=== PATIENT | male | born 1940 | race Caucasian/White ===

== ENCOUNTER 2017-09-29 15:49 | Emergency (ER) | payer MEDICARE, MEDICAID ==
[~2017-09-29] VITALS: Ht 170.2 cm; Wt 64.5 kg
[2017-09-29] MEDS ORDERED: HYDR-4061 PO (15:52)
[2017-09-29 16:22] LABS: BASOPHILS % (AUTO) 1.2 % (0.0-2.0); EOSINOPHILS % (AUTO) 1.2 % (1.0-6.0); HEMATOCRIT 39.7 % (41-53); HEMOGLOBIN 13.7 g/dL (13.5-17.5); LYMPHOCYTES # (AUTO) 2.9 K/uL (1.0-4.8); LYMPHOCYTES % (AUTO) 32.6 % (22.0-44.0); MEAN CORPUSCULAR HEMOGLOBIN 31.5 pg (26.0-34.0); MEAN CORPUSCULAR HGB CONC 34.5 G/dL (31.0-37.0); MEAN CORPUSCULAR VOLUME 91 fL (80-100); MONOCYTES # (AUTO) 0.8 K/uL (0.1-1.0); PLATELET COUNT (AUTO) 187 K/uL (150-450); RED BLOOD CELL COUNT(AUTO) 4.35 MIL/uL (4.50-5.90); RED CELL DISTRIBUTION WIDTH 14.3 % (11.5-14.5)
[2017-09-29 16:33] LABS: CALCIUM, TOTAL 8.6 mg/dL (8.8-10.5); CREATININE 1.55 mg/dL (0.60-1.30); POTASSIUM 3.8 mmol/L (3.5-5.1)
[2017-09-29 16:41] LABS: ALBUMIN 2.3 g/dL (3.4-5.0); BILIRUBIN,TOTAL 0.6 mg/dL (0.1-1.0)
[2017-09-29] MEDS ORDERED: OxyCODONE HCL/ACETAMINOPHEN 5-325 MG TABLET PO ONE (16:45)
[2017-09-29 22:00] LABS: APPEARANCE,URINE CLOUDY (CLEAR); BILIRUBIN,URINE NEGATIVE (NEGATIVE); GLUCOSE, URINE (UA) 250 mg/dL (NEGATIVE); KETONES,URINE TRACE mg/dL (NEGATIVE); LEUKOCYTE ESTERASE ,URINE MODERATE (NEGATIVE); NITRATE,URINE NEGATIVE (NEGATIVE); OCCULT BLOOD,URINE TRACE (NEGATIVE); PH,URINE 6.5 (5.0-8.0); PROTEIN,URINE SEE CONFIRM (NEGATIVE); UROBILINOGEN,URINE 0.2 mg/dL (<=1.0)
[2017-09-29 22:37] LABS: BACTERIA,URINE Many /HPF (None Seen); SULFOSALICYLIC ACID,URINE 4+ (Negative); WBC,URINE 26-50 /HPF (0-5)
[2017-09-29 22:38] LABS: HYALINE CASTS, URINE 0-2 /LPF (None Seen); SQUAMOUS EPITHELIAL CELL,UR None Seen /LPF (None Seen)
[2017-09-29] MEDS ORDERED: LEVOFLOXACIN 500 MG TABLET PO ONE (22:45)
[2017-09-29 22:47] VITALS: BP 174/83
== END 2017-09-29 22:48 | disposition home or self-care (01) ==
LOC: EMS 15:51
DX: N39.0 Urinary tract infection, site not specified (principal); K59.00 Constipation, unspecified; N40.0 Benign prostatic hyperplasia without lower urinary tract symptoms; K52.9 Noninfective gastroenteritis and colitis, unspecified; E11.9 Type 2 diabetes mellitus without complications; E78.00 Pure hypercholesterolemia, unspecified; I10 Essential (primary) hypertension; G89.29 Other chronic pain; M54.9 Dorsalgia, unspecified; F17.210 Nicotine dependence, cigarettes, uncomplicated; Z90.49 Acquired absence of other specified parts of digestive tract; Z98.890 Other specified postprocedural states; Z79.899 Other long term (current) drug therapy
CPT/HCPCS: 74176; 87086; 93005; 99285

== ENCOUNTER 2017-11-30 19:41 | Inpatient (IN) | payer MEDICARE, MEDICAID ==
[~2017-11-30] VITALS: Ht 165.1 cm; Wt 67.6 kg
[2017-11-30] MEDS ORDERED: AMLO-512 GT (19:53)
[2017-11-30] MEDS ORDERED: OXYC13.5 GT (19:53)
[2017-11-30] MEDS ORDERED: LACT1CAP62 GT (19:53)
[2017-11-30] MEDS ORDERED: CARV6 GT (19:53)
[2017-11-30] MEDS ORDERED: OXYC10 GT (19:53)
[2017-11-30] MEDS ORDERED: GABA-529 GT (19:53)
[2017-11-30] MEDS ORDERED: PANT40TA25 PO (19:53)
[2017-11-30] MEDS ORDERED: OXYC-530 GT (19:55)
[2017-11-30] MEDS ORDERED: DULA1.5P SQ (19:55)
[2017-11-30] MEDS ORDERED: 0.9% SODIUM CHLORIDE 10 ML SYRINGE IVP PRN (20:00)
[2017-11-30] MEDS ORDERED: SODIUM CHLORIDE 0.9% 1,000 ML IV ONE (20:00)
[2017-11-30 20:04] LABS: GLUCOSE,POINT OF CARE 131 MG/DL (70-110)
[2017-11-30 20:14] LABS: BASOPHILS % (AUTO) 0.5 % (0.0-2.0); EOSINOPHILS % (AUTO) 0.2 % (1.0-6.0); HEMOGLOBIN 9.8 g/dL (13.5-17.5); LYMPHOCYTES % (AUTO) 14.3 % (22.0-44.0); MEAN CORPUSCULAR HEMOGLOBIN 33.2 pg (26.0-34.0); MEAN CORPUSCULAR HGB CONC 34.9 G/dL (31.0-37.0); MEAN CORPUSCULAR VOLUME 95 fL (80-100); MONOCYTES % (AUTO) 14.6 % (2.0-9.0); NEUTROPHILS # (AUTO) 4.8 K/uL (1.8-7.7); NEUTROPHILS % (AUTO) 70.4 % (40.0-70.0); PLATELET COUNT (AUTO) 297 K/uL (150-450); RED BLOOD CELL COUNT(AUTO) 2.94 MIL/uL (4.50-5.90)
[2017-11-30 20:25] LABS: CALCIUM, TOTAL 7.7 mg/dL (8.8-10.5); CREATININE 1.78 mg/dL (0.60-1.30); POTASSIUM 3.7 mmol/L (3.5-5.1)
[2017-11-30 20:26] LABS: PROTHROMBIN TIME 10.6 SEC (9.4-11.6)
[2017-11-30] MEDS ORDERED: KETOROLAC TROMETHAMINE 30 MG/ML VIAL IVP ONE (20:30)
[2017-11-30 20:31] LABS: ALBUMIN 1.6 g/dL (3.4-5.0); BILIRUBIN,TOTAL 0.5 mg/dL (0.1-1.0); TOTAL PROTEIN, SERUM 5.1 g/dL (6.4-8.2)
[2017-11-30 20:33] LABS: LACTIC ACID 0.9 mmol/L (0.4-2.0)
[2017-11-30 21:03] LABS: INFLUENZA TYPE A NEGATIVE FOR TYPE A (NEGATIVE); INFLUENZA TYPE B NEGATIVE FOR TYPE B (NEGATIVE)
[2017-11-30] MEDS ORDERED: IOVERSOL 320 MG/ML 100 ML VIAL ONE (21:05)
[2017-11-30] MEDS ORDERED: SODIUM CHLORIDE 0.9% 0 ML ONE (21:05)
[2017-11-30] MEDS ORDERED: IPRATROPIUM BROMIDE 0.5 MG/2.5 ML NEB SOLUTION NEB PRN (22:15)
[2017-11-30] MEDS ORDERED: ALBUTEROL SULFATE 2.5 MG/0.5 ML NEB SOLUTION NEB PRN (22:15)
[2017-11-30] MEDS ORDERED: BISACODYL 10 MG RECTAL RECTAL SUPPOSITORY PR PRN (22:15)
[2017-11-30] MEDS ORDERED: ZOLPIDEM TARTRATE 5 MG TABLET PO PRN (22:15)
[2017-11-30] MEDS ORDERED: MAGNESIUM HYDROXIDE SUSPENSION 30 ML UDCUP PO PRN (22:15)
[2017-11-30] MEDS ORDERED: DEXTROSE 50%-WATER 25 GM/50 ML SYRINGE IVP PRN (22:45)
[2017-11-30 23:40] VITALS: BP 137/63
[2017-12-01 05:00] VITALS: BP 125/59
[2017-12-01 06:16] LABS: HEMATOCRIT 29.7 % (41-53); HEMOGLOBIN 10.4 g/dL (13.5-17.5); MEAN CORPUSCULAR HEMOGLOBIN 33.6 pg (26.0-34.0); MEAN CORPUSCULAR VOLUME 96 fL (80-100); PLATELET COUNT (AUTO) 312 K/uL (150-450); RED BLOOD CELL COUNT(AUTO) 3.09 MIL/uL (4.50-5.90); RED CELL DISTRIBUTION WIDTH 16.2 % (11.5-14.5)
[2017-12-01 06:23] LABS: HEMOGLOBIN A1C 7.2 % (4.5-6.2)
[2017-12-01 06:39] LABS: GLUCOMETER DEV NAME(LOC) 6N 2D; GLUCOSE,POINT OF CARE 89 MG/DL (70-110)
[2017-12-01 06:39] LABS: PROSTATE SPECIFIC ANTIGEN 2.94 ng/mL (0.00-4.00)
[2017-12-01 06:42] LABS: ALBUMIN 1.5 g/dL (3.4-5.0); BILIRUBIN,TOTAL 0.4 mg/dL (0.1-1.0); CALCIUM, TOTAL 7.6 mg/dL (8.8-10.5); CREATININE 1.86 mg/dL (0.60-1.30); POTASSIUM 3.2 mmol/L (3.5-5.1); TOTAL PROTEIN, SERUM 4.9 g/dL (6.4-8.2)
[2017-12-01 06:54] LABS: C-REACTIVE PROTEIN QUANT 6.05 mg/dL (0.00-0.30); CHOL/HDL RATIO 2.2 (4.2-7.3); FREE T4 (FREE THYROXINE) 1.22 ng/dL (0.76-1.46); MAGNESIUM 1.5 mg/dL (1.80-2.40); THYROID STIMULATING HORMONE 1.06 uIU/mL (0.36-3.74)
[2017-12-01 07:10] VITALS: BP 126/60
[2017-12-01 07:29] LABS: BAND NEUTROPHILS % (MANUAL) 19 % (0-5); BASOPHILS % (MANUAL) 1 % (0-2); EOSINOPHILS % (MANUAL) 2 % (1-6); LYMPHOCYTES % (MANUAL) 20 % (22-44); MONOCYTES % (MANUAL) 13 % (2-9); SEGMENTED NEUTROPHILS % 45 % (40-70)
[2017-12-01 07:31] LABS: PLATELET MORPHOLOGY COMMENT LARGE PLTS PRESENT
[2017-12-01 09:02] LABS: ERYTHROCYTE SEDIMENTATION RATE 20 MM/HR (0-15)
[2017-12-01] MEDS: PANTOPRAZOLE SODIUM 40 MG/VIAL IVP SCH (09:11)
[2017-12-01] MEDS: HEPARIN SODIUM,PORCINE 5,000 UNITS/ML VIAL SQ SCH ×2 (09:11→20:25)
[2017-12-01] MEDS ORDERED: POTASSIUM CHLORIDE 20 MEQ ER TABLET PO ONE (10:45)
[2017-12-01] MEDS ORDERED: MAGNESIUM SULFATE 4 GM/WATER 100 ML IV ONE (10:45)
[2017-12-01 11:18] VITALS: BP 124/64
[2017-12-01 15:25] VITALS: BP 124/64
[2017-12-01 17:54] LABS: GLUCOMETER DEV NAME(LOC) 6N 1E; GLUCOSE,POINT OF CARE 125 MG/DL (70-110)
[2017-12-01 20:14] VITALS: BP 132/86
[2017-12-01] MEDS: INSULIN LISPRO 100 UNITS/ML SQ PRN (20:27)
[2017-12-01 23:42] VITALS: BP 122/78
[2017-12-02 04:24] LABS: GLUCOMETER DEV NAME(LOC) 6N 1E; GLUCOSE,POINT OF CARE 176 MG/DL (70-110)
[2017-12-02 05:24] VITALS: BP 118/82
[2017-12-02 05:39] LABS: GLUCOMETER DEV NAME(LOC) 6N 1E; GLUCOSE,POINT OF CARE 91 MG/DL (70-110)
[2017-12-02 06:07] LABS: BASOPHILS % (AUTO) 0.4 % (0.0-2.0); EOSINOPHILS % (AUTO) 2.5 % (1.0-6.0); HEMATOCRIT 30.1 % (41-53); HEMOGLOBIN 10.5 g/dL (13.5-17.5); LYMPHOCYTES # (AUTO) 1.7 K/uL (1.0-4.8); LYMPHOCYTES % (AUTO) 22.1 % (22.0-44.0); MEAN CORPUSCULAR HEMOGLOBIN 33.2 pg (26.0-34.0); MEAN CORPUSCULAR VOLUME 95 fL (80-100); MONOCYTES # (AUTO) 1.2 K/uL (0.1-1.0); MONOCYTES % (AUTO) 15.7 % (2.0-9.0); NEUTROPHILS # (AUTO) 4.5 K/uL (1.8-7.7); NEUTROPHILS % (AUTO) 59.3 % (40.0-70.0); PLATELET COUNT (AUTO) 400 K/uL (150-450); RED BLOOD CELL COUNT(AUTO) 3.17 MIL/uL (4.50-5.90); RED CELL DISTRIBUTION WIDTH 15.7 % (11.5-14.5)
[2017-12-02 06:25] LABS: CALCIUM, TOTAL 7.7 mg/dL (8.8-10.5); CREATININE 1.62 mg/dL (0.60-1.30); MAGNESIUM 2.3 mg/dL (1.80-2.40); POTASSIUM 3.5 mmol/L (3.5-5.1)
[2017-12-02 06:45] LABS: C.DIFF GDH ANTIGEN, Stool Positive (Negative); C.DIFF TOXINS A&B, Stool Negative (Negative)
[2017-12-02 07:20] VITALS: BP 124/76
[2017-12-02 07:36] LABS: HIV 1-2 SCREEN 4TH GEN W/RFLX Non Reactive (Non Reactive)
[2017-12-02 07:36] LABS: CREATININE,URINE RANDOM 189.9 mg/dL (30.0-125.0); PROTEIN,URINE RANDOM 505 mg/dL (0-11.9)
[2017-12-02 07:49] LABS: APPEARANCE,URINE CLOUDY (CLEAR); BILIRUBIN,URINE NEGATIVE (NEGATIVE); GLUCOSE, URINE (UA) 100 mg/dL (NEGATIVE); KETONES,URINE NEGATIVE (NEGATIVE); LEUKOCYTE ESTERASE ,URINE NEGATIVE (NEGATIVE); NITRATE,URINE NEGATIVE (NEGATIVE); OCCULT BLOOD,URINE NEGATIVE (NEGATIVE); PROTEIN,URINE SEE CONFIRM (NEGATIVE); UROBILINOGEN,URINE 0.2 mg/dL (<=1.0)
[2017-12-02 07:57] LABS: SULFOSALICYLIC ACID,URINE 3+ (Negative)
[2017-12-02 08:00] LABS: RBC,URINE None Seen /HPF (0-2)
[2017-12-02 08:01] LABS: BACTERIA,URINE None Seen /HPF (None Seen); SQUAMOUS EPITHELIAL CELL,UR Few /LPF (None Seen); WBC,URINE 0-2 /HPF (0-5)
[2017-12-02] MEDS ORDERED: OxyCODONE HCL/ACETAMINOPHEN 10-325 MG TABLET PO PRN (08:45)
[2017-12-02] MEDS: PANTOPRAZOLE SODIUM 40 MG/VIAL IVP SCH (09:26)
[2017-12-02] MEDS: HEPARIN SODIUM,PORCINE 5,000 UNITS/ML VIAL SQ SCH ×2 (09:26→20:01)
[2017-12-02] MEDS: OxyCODONE HCL/ACETAMINOPHEN 10-325 MG TABLET PO PRN ×3 (09:26→23:21)
[2017-12-02 11:56] VITALS: BP 150/77
[2017-12-02] MEDS: SODIUM CHLORIDE 0.9% 1,000 ML IV SCH (12:02)
[2017-12-02] MEDS: VANCOMYCIN HCL 125 MG/2.5 ML SOLUTION ORAL.SYG PO SCH ×3 (12:03→23:21)
[2017-12-02] MEDS: INSULIN LISPRO 100 UNITS/ML SQ PRN ×2 (12:05→20:26)
[2017-12-02 12:59] LABS: GLUCOMETER DEV NAME(LOC) 6N 1E; GLUCOSE,POINT OF CARE 153 MG/DL (70-110)
[2017-12-02 16:03] VITALS: BP 122/78
[2017-12-02 20:00] VITALS: BP 143/83
[2017-12-02 20:49] LABS: GLUCOMETER DEV NAME(LOC) 6N 1E; GLUCOSE,POINT OF CARE 141 MG/DL (70-110)
[2017-12-03] VITALS: BP 137/80
[2017-12-03] MEDS: SODIUM CHLORIDE 0.9% 1,000 ML IV SCH (02:31)
[2017-12-03 04:00] VITALS: BP 131/74
[2017-12-03 06:13] LABS: BASOPHILS % (AUTO) 0.6 % (0.0-2.0); EOSINOPHILS % (AUTO) 2.8 % (1.0-6.0); HEMATOCRIT 26.7 % (41-53); HEMOGLOBIN 9.4 g/dL (13.5-17.5); LYMPHOCYTES # (AUTO) 2.1 K/uL (1.0-4.8); LYMPHOCYTES % (AUTO) 25.5 % (22.0-44.0); MEAN CORPUSCULAR HEMOGLOBIN 32.9 pg (26.0-34.0); MEAN CORPUSCULAR HGB CONC 35.4 G/dL (31.0-37.0); MEAN CORPUSCULAR VOLUME 93 fL (80-100); MONOCYTES % (AUTO) 12.6 % (2.0-9.0); NEUTROPHILS # (AUTO) 4.9 K/uL (1.8-7.7); NEUTROPHILS % (AUTO) 58.5 % (40.0-70.0); PLATELET COUNT (AUTO) 394 K/uL (150-450); RED BLOOD CELL COUNT(AUTO) 2.87 MIL/uL (4.50-5.90); RED CELL DISTRIBUTION WIDTH 15.7 % (11.5-14.5)
[2017-12-03] MEDS: VANCOMYCIN HCL 125 MG/2.5 ML SOLUTION ORAL.SYG PO SCH ×2 (06:33→12:16)
[2017-12-03 06:49] LABS: GLUCOMETER DEV NAME(LOC) 6N 1E; GLUCOSE,POINT OF CARE 108 MG/DL (70-110)
[2017-12-03 07:09] LABS: GLUCOMETER DEV NAME(LOC) 6N 2D; GLUCOSE,POINT OF CARE 108 MG/DL (70-110)
[2017-12-03 07:10] LABS: GLUCOMETER DEV NAME(LOC) 6N 2D; GLUCOSE,POINT OF CARE 140 MG/DL (70-110)
[2017-12-03 08:00] VITALS: BP 152/70
[2017-12-03] MEDS: PANTOPRAZOLE SODIUM 40 MG/VIAL IVP SCH (08:16)
[2017-12-03] MEDS: HEPARIN SODIUM,PORCINE 5,000 UNITS/ML VIAL SQ SCH (08:16)
[2017-12-03] MEDS: OxyCODONE HCL/ACETAMINOPHEN 10-325 MG TABLET PO PRN (08:47)
[2017-12-03 11:14] LABS: GLUCOMETER DEV NAME(LOC) 6N 1E; GLUCOSE,POINT OF CARE 133 MG/DL (70-110)
[2017-12-03 11:17] VITALS: BP 153/79
[2017-12-04] MEDS ORDERED: AmLODIPine BESYLATE 5 MG TABLET PO SCH (09:00)
[2017-12-16] MEDS ORDERED: VANCOMYCIN HCL 125 MG/2.5 ML SOLUTION ORAL.SYG PO SCH (21:00)
[2017-12-24] MEDS ORDERED: VANCOMYCIN HCL 125 MG/2.5 ML SOLUTION ORAL.SYG PO SCH (09:00)
[2018-01-01] MEDS ORDERED: VANCOMYCIN HCL 125 MG/2.5 ML SOLUTION ORAL.SYG PO SCH (09:00)
== END 2017-12-03 15:21 | DRG 682 ==
LOC: EMS 19:42 → 6N 22:30
PROVIDERS: ADMIT Internal Medicine Geriatric Medicine; ATTEND Internal Medicine Geriatric Medicine
DX: N17.9 Acute kidney failure, unspecified (principal); E43 Unspecified severe protein-calorie malnutrition; A04.72 Enterocolitis due to Clostridium difficile, not specified as recurrent; G93.40 Encephalopathy, unspecified; T40.605A Adverse effect of unspecified narcotics, initial encounter; M06.9 Rheumatoid arthritis, unspecified; N18.9 Chronic kidney disease, unspecified; D64.9 Anemia, unspecified; E11.65 Type 2 diabetes mellitus with hyperglycemia; B19.20 Unspecified viral hepatitis C without hepatic coma; E11.21 Type 2 diabetes mellitus with diabetic nephropathy; E11.22 Type 2 diabetes mellitus with diabetic chronic kidney disease; E11.319 Type 2 diabetes mellitus with unspecified diabetic retinopathy without macular edema; E78.00 Pure hypercholesterolemia, unspecified; E83.42 Hypomagnesemia; E86.0 Dehydration; E87.6 Hypokalemia; I12.9 Hypertensive chronic kidney disease with stage 1 through stage 4 chronic kidney disease, or unspecified chronic kidney disease; K21.9 Gastro-esophageal reflux disease without esophagitis; K62.1 Rectal polyp; N40.0 Benign prostatic hyperplasia without lower urinary tract symptoms; R62.7 Adult failure to thrive; Z79.1 Long term (current) use of non-steroidal anti-inflammatories (NSAID); Z79.891 Long term (current) use of opiate analgesic; Z79.4 Long term (current) use of insulin; Z80.8 Family history of malignant neoplasm of other organs or systems; Z82.49 Family history of ischemic heart disease and other diseases of the circulatory system; Z86.010 Personal history of colon polyps; Z86.19 Personal history of other infectious and parasitic diseases; Z87.19 Personal history of other diseases of the digestive system; Z91.19 Patient's noncompliance with other medical treatment and regimen; Z87.441 Personal history of nephrotic syndrome; Z68.24 Body mass index [BMI] 24.0-24.9, adult
CPT/HCPCS: 70450; 74176; 82105; 82570; 83036; 83605; 83735; 84153; 84156; 84439; 84443; 85651; 86140; 86592; 87040; 87081; 87177; 87324; 87389; 87449; 87804; 89055; 93005; 96361; 96374; C9113; G0378; J1644; J1885; J3475; J7030; J7050

== ENCOUNTER 2018-01-12 20:21 | Emergency (ER) | payer MEDICARE, MEDICAID ==
[~2018-01-12] VITALS: Ht 170.2 cm; Wt 77.3 kg
[~2018-01-12 20:21] MED LIST: AMLO-512 GT; CARV6 PO; DULA1.5P SQ; GABA-529 GT; LACT1CAP62 GT; OXYC-530 GT; OXYC10 GT; OXYC13.5 GT; PANT40TA25 PO
[2018-01-12 20:38] LABS: GLUCOSE,POINT OF CARE 97 MG/DL (70-110)
[2018-01-12 21:38] LABS: BASOPHILS % (AUTO) 1.1 % (0.0-2.0); EOSINOPHILS % (AUTO) 2.3 % (1.0-6.0); HEMATOCRIT 30.2 % (41-53); HEMOGLOBIN 10.3 g/dL (13.5-17.5); LYMPHOCYTES # (AUTO) 1.8 K/uL (1.0-4.8); LYMPHOCYTES % (AUTO) 35.2 % (22.0-44.0); MEAN CORPUSCULAR HEMOGLOBIN 32.7 pg (26.0-34.0); MEAN CORPUSCULAR HGB CONC 33.9 G/dL (31.0-37.0); MEAN CORPUSCULAR VOLUME 96 fL (80-100); MONOCYTES # (AUTO) 0.5 K/uL (0.1-1.0); MONOCYTES % (AUTO) 9.1 % (2.0-9.0); NEUTROPHILS # (AUTO) 2.6 K/uL (1.8-7.7); NEUTROPHILS % (AUTO) 52.3 % (40.0-70.0); PLATELET COUNT (AUTO) 125 K/uL (150-450); RED BLOOD CELL COUNT(AUTO) 3.14 MIL/uL (4.50-5.90); RED CELL DISTRIBUTION WIDTH 15.9 % (11.5-14.5)
[2018-01-12 21:54] LABS: CREATININE 1.77 mg/dL (0.60-1.30); POTASSIUM 5.2 mmol/L (3.5-5.1)
[2018-01-12 22:00] LABS: ALBUMIN 2.4 g/dL (3.4-5.0); BILIRUBIN,TOTAL 0.4 mg/dL (0.1-1.0); TOTAL PROTEIN, SERUM 6.2 g/dL (6.4-8.2)
[2018-01-12 22:31] LABS: APPEARANCE,URINE CLEAR (CLEAR); BILIRUBIN,URINE NEGATIVE (NEGATIVE); GLUCOSE, URINE (UA) NEGATIVE (NEGATIVE); KETONES,URINE NEGATIVE (NEGATIVE); LEUKOCYTE ESTERASE ,URINE NEGATIVE (NEGATIVE); NITRATE,URINE NEGATIVE (NEGATIVE); OCCULT BLOOD,URINE TRACE (NEGATIVE); PROTEIN,URINE SEE CONFIRM (NEGATIVE); UROBILINOGEN,URINE 0.2 mg/dL (<=1.0)
[2018-01-12] MEDS ORDERED: CLON-570 PO (22:39)
[2018-01-12 22:40] LABS: SULFOSALICYLIC ACID,URINE 3+ (Negative)
[2018-01-12 22:42] LABS: BACTERIA,URINE None Seen /HPF (None Seen); SQUAMOUS EPITHELIAL CELL,UR Few /LPF (None Seen)
[2018-01-12] MEDS ORDERED: CARVEDILOL 3.125 MG TABLET PO ONE ×2 (22:45)
[2018-01-12] MEDS ORDERED: AmLODIPine BESYLATE 5 MG TABLET PO ONE (22:45)
[2018-01-12 23:36] VITALS: BP 175/77
== END 2018-01-13 00:01 | disposition home or self-care (01) ==
LOC: EMS 20:21
DX: R33.9 Retention of urine, unspecified (principal); N50.89 Other specified disorders of the male genital organs; E11.9 Type 2 diabetes mellitus without complications; K21.9 Gastro-esophageal reflux disease without esophagitis; E78.00 Pure hypercholesterolemia, unspecified; I10 Essential (primary) hypertension; G89.29 Other chronic pain
CPT/HCPCS: 51702; 76870

== ENCOUNTER 2018-04-19 11:40 | Day surgery (SDC) | payer MEDICARE, MEDICAID ==
[~2018-04-19] VITALS: Ht 167.6 cm; Wt 69.0 kg
[~2018-04-19 11:40] MED LIST changes: +CLON-570 PO; +SODIUM CHLORIDE 0.9% 0 ML IV ONE; +SODIUM CHLORIDE 0.9% 1,000 ML IV ONE
[2018-04-19] MEDS ORDERED: MIDAZOLAM HCL 2 MG/2 ML VIAL IVP ONE (11:41)
[2018-04-19] MEDS ORDERED: PROPOFOL 1% 20 ML VIAL IVP ONE (11:41)
[2018-04-19] MEDS ORDERED: LIDOCAINE/PF 2% 5 ML VIAL IM ONE (11:41)
[2018-04-19 12:38] LABS: GLUCOMETER DEV NAME(LOC) SDS.; GLUCOSE,POINT OF CARE 120 MG/DL (70-110)
[2018-04-19 14:59] LABS: GLUCOMETER DEV NAME(LOC) SDS.; GLUCOSE,POINT OF CARE 126 MG/DL (70-110)
[2018-04-19 15:03] LABS: GLUCOSE,POINT OF CARE 144 MG/DL (70-110)
[2018-04-19 15:04] LABS: BASOPHILS % (AUTO) 0.7 % (0.0-2.0); EOSINOPHILS % (AUTO) 1.9 % (1.0-6.0); HEMATOCRIT 30.7 % (41-53); HEMOGLOBIN 10.3 g/dL (13.5-17.5); LYMPHOCYTES # (AUTO) 2.3 K/uL (1.0-4.8); LYMPHOCYTES % (AUTO) 39.1 % (22.0-44.0); MEAN CORPUSCULAR HEMOGLOBIN 30.6 pg (26.0-34.0); MEAN CORPUSCULAR HGB CONC 33.6 G/dL (31.0-37.0); MEAN CORPUSCULAR VOLUME 91 fL (80-100); MONOCYTES # (AUTO) 0.6 K/uL (0.1-1.0); MONOCYTES % (AUTO) 9.9 % (2.0-9.0); NEUTROPHILS # (AUTO) 2.8 K/uL (1.8-7.7); NEUTROPHILS % (AUTO) 48.4 % (40.0-70.0); PLATELET COUNT (AUTO) 150 K/uL (150-450); RED BLOOD CELL COUNT(AUTO) 3.37 MIL/uL (4.50-5.90); RED CELL DISTRIBUTION WIDTH 15.6 % (11.5-14.5)
[2018-04-19 15:15] LABS: PROTHROMBIN TIME 10.7 SEC (9.4-11.6)
[2018-04-19 15:16] LABS: CALCIUM, TOTAL 8.4 mg/dL (8.8-10.5); CREATININE 1.89 mg/dL (0.60-1.30); POTASSIUM 4.5 mmol/L (3.5-5.1)
[2018-04-19 15:43] LABS: ALBUMIN 2.9 g/dL (3.4-5.0); BILIRUBIN,TOTAL 0.6 mg/dL (0.1-1.0); TOTAL PROTEIN, SERUM 6.8 g/dL (6.4-8.2)
[2018-04-19] MEDS ORDERED: FURO40 PO (17:05)
[2018-04-19] MEDS ORDERED: POTA25TA7 PO (17:05)
[2018-04-19] MEDS ORDERED: PREG75 PO (17:05)
[2018-04-20 07:23] LABS: GLUCOSE,POINT OF CARE 117 MG/DL (70-110)
== END 2018-04-20 14:40 | disposition other institution (70) ==
LOC: SURGERY 11:40
PROVIDERS: ATTEND Student in an Organized Health Care Education/Training Program
DX: I85.00 Esophageal varices without bleeding (principal); K31.9 Disease of stomach and duodenum, unspecified; I11.0 Hypertensive heart disease with heart failure; I50.9 Heart failure, unspecified; E11.9 Type 2 diabetes mellitus without complications; F03.90 Unspecified dementia, unspecified severity, without behavioral disturbance, psychotic disturbance, mood disturbance, and anxiety; B19.20 Unspecified viral hepatitis C without hepatic coma; D64.9 Anemia, unspecified; I25.2 Old myocardial infarction; F17.210 Nicotine dependence, cigarettes, uncomplicated; Z79.899 Other long term (current) drug therapy; Z98.890 Other specified postprocedural states
CPT/HCPCS: 36415; 43235; 71045; 80053; 82962; 85025; 85610; 85730; 93005; J2250; J2704; J3490; J7030

== ENCOUNTER 2018-04-19 14:56 | Inpatient (IN) | payer MEDICARE, MEDICAID ==
[~2018-04-19] VITALS: Ht 170.2 cm; Wt 69.6 kg
[~2018-04-19 14:56] MED LIST changes: -SODIUM CHLORIDE 0.9% 0 ML IV ONE; -SODIUM CHLORIDE 0.9% 1,000 ML IV ONE
[2018-04-19] MEDS ORDERED: FentaNYL CITRATE PF 500 MCG in DEXTROSE 5%-WATER 90 ML IV PRN (15:04)
[2018-04-19 15:17] LABS: BASOPHILS % (AUTO) 0.6 % (0.0-2.0); EOSINOPHILS % (AUTO) 2.1 % (1.0-6.0); HEMATOCRIT 31.6 % (41-53); HEMOGLOBIN 10.7 g/dL (13.5-17.5); LYMPHOCYTES # (AUTO) 2.3 K/uL (1.0-4.8); LYMPHOCYTES % (AUTO) 38.4 % (22.0-44.0); MEAN CORPUSCULAR HEMOGLOBIN 31.4 pg (26.0-34.0); MEAN CORPUSCULAR HGB CONC 33.8 G/dL (31.0-37.0); MEAN CORPUSCULAR VOLUME 93 fL (80-100); MONOCYTES # (AUTO) 0.6 K/uL (0.1-1.0); MONOCYTES % (AUTO) 9.9 % (2.0-9.0); NEUTROPHILS # (AUTO) 2.9 K/uL (1.8-7.7); PLATELET COUNT (AUTO) 148 K/uL (150-450); RED CELL DISTRIBUTION WIDTH 15.7 % (11.5-14.5)
[2018-04-19 15:21] LABS: PROTHROMBIN TIME 10.7 SEC (9.4-11.6)
[2018-04-19 15:30] LABS: APPEARANCE,URINE CLEAR (CLEAR); BILIRUBIN,URINE NEGATIVE (NEGATIVE); GLUCOSE, URINE (UA) NEGATIVE (NEGATIVE); KETONES,URINE NEGATIVE (NEGATIVE); LEUKOCYTE ESTERASE ,URINE NEGATIVE (NEGATIVE); NITRATE,URINE NEGATIVE (NEGATIVE); OCCULT BLOOD,URINE TRACE (NEGATIVE); PH,URINE 5.5 (5.0-8.0); PROTEIN,URINE SEE CONFIRM (NEGATIVE); UROBILINOGEN,URINE 0.2 mg/dL (<=1.0)
[2018-04-19 15:36] LABS: BACTERIA,URINE Rare /HPF (None Seen); SQUAMOUS EPITHELIAL CELL,UR Few /LPF (None Seen); SULFOSALICYLIC ACID,URINE 3+ (Negative); WBC,URINE 0-2 /HPF (0-5)
[2018-04-19 15:48] LABS: ALBUMIN 2.9 g/dL (3.4-5.0); BILIRUBIN,TOTAL 0.6 mg/dL (0.1-1.0); CALCIUM, TOTAL 8.4 mg/dL (8.8-10.5); CREATININE 1.89 mg/dL (0.60-1.30); POTASSIUM 4.5 mmol/L (3.5-5.1); TOTAL PROTEIN, SERUM 6.8 g/dL (6.4-8.2)
[2018-04-19] MEDS ORDERED: FUROSEMIDE 40 MG/4 ML VIAL IVP ONE (16:15)
[2018-04-19] MEDS ORDERED: ONDANSETRON HCL 4 MG/2 ML VIAL IVP PRN ×2 (16:30→19:00)
[2018-04-19] MEDS ORDERED: ACETAMINOPHEN 325 MG TABLET PO PRN (16:30)
[2018-04-19] MEDS ORDERED: 0.9% SODIUM CHLORIDE 10 ML SYRINGE IVP PRN (16:30)
[2018-04-19] MEDS ORDERED: PREG75 PO (17:05)
[2018-04-19] MEDS ORDERED: FURO40 PO (17:05)
[2018-04-19] MEDS ORDERED: POTA25TA7 PO (17:05)
[2018-04-19 17:15] VITALS: BP 200/77
[2018-04-19] MEDS ORDERED: MAGNESIUM HYDROXIDE SUSPENSION 30 ML UDCUP PO PRN (19:00)
[2018-04-19] MEDS ORDERED: CloNIDine HCL 0.1 MG TABLET PO PRN (19:00)
[2018-04-19] MEDS ORDERED: IPRATROPIUM BROMIDE 0.5 MG/2.5 ML NEB SOLUTION NEB PRN (19:00)
[2018-04-19] MEDS ORDERED: DEXTROSE 50%-WATER 25 GM/50 ML SYRINGE IVP PRN (19:00)
[2018-04-19] MEDS ORDERED: BISACODYL 10 MG RECTAL RECTAL SUPPOSITORY PR PRN (19:00)
[2018-04-19] MEDS ORDERED: ALBUTEROL SULFATE 2.5 MG/0.5 ML NEB SOLUTION NEB PRN (19:00)
[2018-04-19] MEDS ORDERED: ZOLPIDEM TARTRATE 5 MG TABLET PO PRN (19:00)
[2018-04-19] MEDS ORDERED: FUROSEMIDE 20 MG/2 ML VIAL IVP SCH (19:15)
[2018-04-19] MEDS: HEPARIN SODIUM,PORCINE 5,000 UNITS/ML VIAL SQ SCH (20:26)
[2018-04-19] MEDS: FUROSEMIDE 20 MG/2 ML VIAL IVP SCH (20:26)
[2018-04-19] MEDS: AmLODIPine BESYLATE 10 MG TABLET PO SCH (20:27)
[2018-04-19 21:31] VITALS: BP 182/75
[2018-04-19] MEDS: OxyCODONE HCL/ACETAMINOPHEN 5-325 MG TABLET PO PRN (21:31)
[2018-04-19 22:30] VITALS: BP 172/77
[2018-04-19] MEDS: HydrALAZINE HCL 20 MG/ML VIAL IVP PRN (23:09)
[2018-04-20] VITALS (8 sets, daily range): BP systolic 142–165; BP diastolic 60–99
[2018-04-20] MEDS: OxyCODONE HCL/ACETAMINOPHEN 5-325 MG TABLET PO PRN ×3 (04:44→19:01)
[2018-04-20 04:58] LABS: BASOPHILS % (AUTO) 0.6 % (0.0-2.0); EOSINOPHILS % (AUTO) 2.4 % (1.0-6.0); HEMATOCRIT 30.5 % (41-53); HEMOGLOBIN 10.2 g/dL (13.5-17.5); LYMPHOCYTES # (AUTO) 1.5 K/uL (1.0-4.8); LYMPHOCYTES % (AUTO) 23.1 % (22.0-44.0); MEAN CORPUSCULAR HEMOGLOBIN 30.7 pg (26.0-34.0); MEAN CORPUSCULAR HGB CONC 33.6 G/dL (31.0-37.0); MEAN CORPUSCULAR VOLUME 91 fL (80-100); MONOCYTES # (AUTO) 0.7 K/uL (0.1-1.0); MONOCYTES % (AUTO) 11.4 % (2.0-9.0); NEUTROPHILS % (AUTO) 62.5 % (40.0-70.0); PLATELET COUNT (AUTO) 151 K/uL (150-450); RED BLOOD CELL COUNT(AUTO) 3.33 MIL/uL (4.50-5.90); RED CELL DISTRIBUTION WIDTH 15.4 % (11.5-14.5)
[2018-04-20 05:15] LABS: LACTIC ACID 0.6 mmol/L (0.4-2.0)
[2018-04-20 05:32] LABS: ALBUMIN 2.7 g/dL (3.4-5.0); BILIRUBIN,TOTAL 0.7 mg/dL (0.1-1.0); CALCIUM, TOTAL 8.8 mg/dL (8.8-10.5); CHOL/HDL RATIO 3.2 (4.2-7.3); CREATININE 1.79 mg/dL (0.60-1.30); FREE T4 (FREE THYROXINE) 0.94 ng/dL (0.76-1.46); POTASSIUM 4.7 mmol/L (3.5-5.1); THYROID STIMULATING HORMONE 1.9 uIU/mL (0.36-3.74); TOTAL PROTEIN, SERUM 6.6 g/dL (6.4-8.2)
[2018-04-20 07:23] LABS: GLUCOSE,POINT OF CARE 102 MG/DL (70-110)
[2018-04-20] MEDS: HEPARIN SODIUM,PORCINE 5,000 UNITS/ML VIAL SQ SCH ×2 (07:51→20:13)
[2018-04-20] MEDS: PANTOPRAZOLE SODIUM 40 MG/VIAL IVP SCH (07:51)
[2018-04-20] MEDS: AmLODIPine BESYLATE 10 MG TABLET PO SCH (07:52)
[2018-04-20] MEDS: FUROSEMIDE 20 MG/2 ML VIAL IVP SCH ×2 (07:52→20:12)
[2018-04-20] MEDS: INSULIN LISPRO 100 UNITS/ML SQ PRN ×2 (12:15→20:13)
[2018-04-20 16:49] LABS: GLUCOSE,POINT OF CARE 145 MG/DL (70-110)
[2018-04-20 21:54] LABS: GLUCOMETER DEV NAME(LOC) 5S.1; GLUCOSE,POINT OF CARE 158 MG/DL (70-110)
[2018-04-20 21:54] LABS: GLUCOMETER DEV NAME(LOC) 5S.1; GLUCOSE,POINT OF CARE 112 MG/DL (70-110)
[2018-04-21] VITALS (7 sets, daily range): BP systolic 141–166; BP diastolic 60–88
[2018-04-21] MEDS: OxyCODONE HCL/ACETAMINOPHEN 5-325 MG TABLET PO PRN ×2 (01:01→07:03)
[2018-04-21] MEDS: HydrALAZINE HCL 20 MG/ML VIAL IVP PRN (05:08)
[2018-04-21 06:07] LABS: BASOPHILS % (AUTO) 0.6 % (0.0-2.0); EOSINOPHILS % (AUTO) 3.1 % (1.0-6.0); HEMATOCRIT 30.1 % (41-53); HEMOGLOBIN 10.2 g/dL (13.5-17.5); LYMPHOCYTES # (AUTO) 1.4 K/uL (1.0-4.8); LYMPHOCYTES % (AUTO) 24.3 % (22.0-44.0); MEAN CORPUSCULAR HEMOGLOBIN 31.2 pg (26.0-34.0); MEAN CORPUSCULAR VOLUME 92 fL (80-100); MONOCYTES # (AUTO) 0.6 K/uL (0.1-1.0); MONOCYTES % (AUTO) 10.2 % (2.0-9.0); NEUTROPHILS # (AUTO) 3.5 K/uL (1.8-7.7); NEUTROPHILS % (AUTO) 61.8 % (40.0-70.0); PLATELET COUNT (AUTO) 154 K/uL (150-450); RED BLOOD CELL COUNT(AUTO) 3.29 MIL/uL (4.50-5.90); RED CELL DISTRIBUTION WIDTH 15.6 % (11.5-14.5)
[2018-04-21 06:25] LABS: CALCIUM, TOTAL 8.6 mg/dL (8.8-10.5); CREATININE 2.12 mg/dL (0.60-1.30); POTASSIUM 4.4 mmol/L (3.5-5.1)
[2018-04-21 06:29] LABS: GLUCOMETER DEV NAME(LOC) 5S.1; GLUCOSE,POINT OF CARE 118 MG/DL (70-110)
[2018-04-21] MEDS: PANTOPRAZOLE SODIUM 40 MG/VIAL IVP SCH (08:19)
[2018-04-21] MEDS: AmLODIPine BESYLATE 10 MG TABLET PO SCH (08:19)
[2018-04-21] MEDS: FUROSEMIDE 20 MG/2 ML VIAL IVP SCH ×2 (08:19→21:06)
[2018-04-21] MEDS: HEPARIN SODIUM,PORCINE 5,000 UNITS/ML VIAL SQ SCH ×2 (08:20→21:06)
[2018-04-21] MEDS ORDERED: PREGABALIN 75 MG CAPSULE PO SCH (09:15)
[2018-04-21] MEDS: OxyCODONE HCL/ACETAMINOPHEN 10-325 MG TABLET PO PRN ×2 (10:32→16:59)
[2018-04-21] MEDS: HydrALAZINE HCL 25 MG TABLET PO SCH ×2 (10:33→16:02)
[2018-04-21] MEDS ORDERED: ZOLPIDEM TARTRATE 5 MG TABLET PO PRN (14:15)
[2018-04-21] MEDS ORDERED: CloNIDine HCL 0.1 MG TABLET PO PRN (14:15)
[2018-04-21 14:40] LABS: CREATININE,URINE RANDOM 33.2 mg/dL (30.0-125.0)
[2018-04-21 14:43] LABS: GLUCOMETER DEV NAME(LOC) 5N.1; GLUCOSE,POINT OF CARE 132 MG/DL (70-110)
[2018-04-21 15:07] LABS: APPEARANCE,URINE CLEAR (CLEAR); BILIRUBIN,URINE NEGATIVE (NEGATIVE); GLUCOSE, URINE (UA) NEGATIVE (NEGATIVE); KETONES,URINE NEGATIVE (NEGATIVE); LEUKOCYTE ESTERASE ,URINE NEGATIVE (NEGATIVE); NITRATE,URINE NEGATIVE (NEGATIVE); OCCULT BLOOD,URINE NEGATIVE (NEGATIVE); PH,URINE 5.5 (5.0-8.0); PROTEIN,URINE SEE CONFIRM (NEGATIVE); UROBILINOGEN,URINE 0.2 mg/dL (<=1.0)
[2018-04-21 15:13] LABS: SULFOSALICYLIC ACID,URINE 4+ (Negative)
[2018-04-21 15:15] LABS: BACTERIA,URINE Few /HPF (None Seen); RBC,URINE 0-2 /HPF (0-2); SQUAMOUS EPITHELIAL CELL,UR Few /LPF (None Seen); WBC,URINE 0-2 /HPF (0-5)
[2018-04-21 15:16] LABS: AMORPHOUS SEDIMENT,UR Few /LPF (None Seen)
[2018-04-21] MEDS ORDERED: CALCIUM CARBONATE 500 MG CHEWABLE TABLET CHEW PRN (17:15)
[2018-04-21 18:53] LABS: GLUCOMETER DEV NAME(LOC) 5S.1; GLUCOSE,POINT OF CARE 148 MG/DL (70-110)
[2018-04-21] MEDS: INSULIN LISPRO 100 UNITS/ML SQ PRN (21:04)
[2018-04-21] MEDS: PREGABALIN 75 MG CAPSULE PO SCH (21:05)
[2018-04-22 00:09] VITALS: BP 150/68
[2018-04-22] MEDS: HydrALAZINE HCL 50 MG TABLET PO SCH ×2 (00:16→08:12)
[2018-04-22 04:40] VITALS: BP 158/74
[2018-04-22 05:39] LABS: GLUCOMETER DEV NAME(LOC) 5N.1; GLUCOSE,POINT OF CARE 169 MG/DL (70-110)
[2018-04-22] MEDS: OxyCODONE HCL/ACETAMINOPHEN 10-325 MG TABLET PO PRN (05:49)
[2018-04-22 06:23] LABS: GLUCOMETER DEV NAME(LOC) 5S.1; GLUCOSE,POINT OF CARE 132 MG/DL (70-110)
[2018-04-22 07:27] LABS: BASOPHILS % (AUTO) 0.7 % (0.0-2.0); EOSINOPHILS % (AUTO) 3.1 % (1.0-6.0); HEMOGLOBIN 10.7 g/dL (13.5-17.5); LYMPHOCYTES # (AUTO) 1.3 K/uL (1.0-4.8); MEAN CORPUSCULAR HEMOGLOBIN 31.5 pg (26.0-34.0); MEAN CORPUSCULAR HGB CONC 34.6 G/dL (31.0-37.0); MEAN CORPUSCULAR VOLUME 91 fL (80-100); MONOCYTES # (AUTO) 0.5 K/uL (0.1-1.0); MONOCYTES % (AUTO) 9.4 % (2.0-9.0); NEUTROPHILS # (AUTO) 3.8 K/uL (1.8-7.7); NEUTROPHILS % (AUTO) 64.8 % (40.0-70.0); PLATELET COUNT (AUTO) 158 K/uL (150-450); RED BLOOD CELL COUNT(AUTO) 3.39 MIL/uL (4.50-5.90); RED CELL DISTRIBUTION WIDTH 15.5 % (11.5-14.5)
[2018-04-22 07:39] LABS: CALCIUM, TOTAL 8.7 mg/dL (8.8-10.5); CREATININE 2.16 mg/dL (0.60-1.30); MAGNESIUM 1.9 mg/dL (1.80-2.40); PHOSPHORUS 4.2 mg/dL (2.5-4.9); POTASSIUM 4.2 mmol/L (3.5-5.1)
[2018-04-22 08:10] VITALS: BP 161/77
[2018-04-22] MEDS: AmLODIPine BESYLATE 10 MG TABLET PO SCH (08:12)
[2018-04-22] MEDS: PANTOPRAZOLE SODIUM 40 MG/VIAL IVP SCH (08:12)
[2018-04-22] MEDS: FUROSEMIDE 20 MG/2 ML VIAL IVP SCH (08:12)
[2018-04-22] MEDS: PREGABALIN 75 MG CAPSULE PO SCH (08:12)
[2018-04-22] MEDS: HEPARIN SODIUM,PORCINE 5,000 UNITS/ML VIAL SQ SCH (08:13)
[2018-04-22 08:35] LABS: HEMOGLOBIN A1C 6.1 % (4.5-6.2)
[2018-04-22] MEDS ORDERED: PERCT10 PO (10:07)
[2018-04-22] MEDS ORDERED: CloNIDine HCL 0.1 MG TABLET PO PRN (14:15)
[2018-04-23 09:25] LABS: IGM (IMMUNOFIXATION) 92 mg/dL (15-143)
[2018-04-26 08:26] LABS: ALBUMIN URINE (ELP) 66.7 %
== END 2018-04-22 10:30 | disposition home or self-care (01) | DRG 208 ==
LOC: EMS 14:57 → ICU 16:31 → 5S 04-20 14:15
PROVIDERS: ADMIT Internal Medicine Geriatric Medicine; ATTEND Internal Medicine Geriatric Medicine
PROC: 5A12012 Performance of Cardiac Output, Single, Manual (ICD-10-PCS; principal; 2018-04-19)
PROC: 5A1935Z Respiratory Ventilation, Less than 24 Consecutive Hours (ICD-10-PCS; 2018-04-19)
PROC: 0BH18EZ Insertion of Endotracheal Airway into Trachea, Via Natural or Artificial Opening Endoscopic (ICD-10-PCS; 2018-04-19)
DX: J96.01 Acute respiratory failure with hypoxia (principal); I50.33 Acute on chronic diastolic (congestive) heart failure; I46.9 Cardiac arrest, cause unspecified; N17.9 Acute kidney failure, unspecified; I13.0 Hypertensive heart and chronic kidney disease with heart failure and stage 1 through stage 4 chronic kidney disease, or unspecified chronic kidney disease; F11.20 Opioid dependence, uncomplicated; I50.32 Chronic diastolic (congestive) heart failure; E11.22 Type 2 diabetes mellitus with diabetic chronic kidney disease; D64.9 Anemia, unspecified; F03.90 Unspecified dementia, unspecified severity, without behavioral disturbance, psychotic disturbance, mood disturbance, and anxiety; E11.21 Type 2 diabetes mellitus with diabetic nephropathy; G89.4 Chronic pain syndrome; N18.3 Chronic kidney disease, stage 3 (moderate); N40.0 Benign prostatic hyperplasia without lower urinary tract symptoms; K21.9 Gastro-esophageal reflux disease without esophagitis; E78.00 Pure hypercholesterolemia, unspecified; B18.2 Chronic viral hepatitis C; Z79.4 Long term (current) use of insulin; Z90.49 Acquired absence of other specified parts of digestive tract; Z79.899 Other long term (current) drug therapy
CPT/HCPCS: 71250; 82105; 82570; 82784; 83036; 83605; 83735; 84100; 84145; 84155; 84156; 84165; 84166; 84300; 84439; 84443; 84540; 86334; 87081; 92610; 93005; 93306; 94002; 96372; 96374; 99291; C9113; G0378; J0360; J1644; J1940

== ENCOUNTER 2018-11-19 09:16 | Inpatient (IN) | payer MEDICARE, MEDICAID ==
[~2018-11-19] VITALS: Ht 167.6 cm; Wt 72.3 kg
[~2018-11-19 09:16] MED LIST changes: -AMLO-512 GT; +AMLO5TAB9 PO; -CLON-570 PO; +DSS100 PO; -DULA1.5P SQ; +FURO40 PO; -GABA-529 GT; +HYDR-2924 PO; +KDUR20 PO; -LACT1CAP62 GT; +LOSA25TA41 PO; -OXYC-530 GT; -OXYC10 GT; -OXYC13.5 GT; -PANT40TA25 PO; +PERCT10 PO; +PREG75 PO
[2018-11-19] MEDS ORDERED: TAMS-1 PO (09:25)
[2018-11-19] MEDS ORDERED: BUME1TAB34 PO (09:25)
[2018-11-19] MEDS ORDERED: BUPR75FI3 PO (09:25)
[2018-11-19 09:42] LABS: GLUCOSE,POINT OF CARE 113 MG/DL (70-110)
[2018-11-19] MEDS ORDERED: MORPHINE SULFATE 4 MG/ML SYRINGE IM ONE (12:00)
[2018-11-19] MEDS ORDERED: ONDANSETRON HCL 4 MG/2 ML VIAL IM ONE (12:00)
[2018-11-19 12:24] LABS: EOSINOPHILS % (AUTO) 1.7 % (1.0-6.0); HEMOGLOBIN 11.9 g/dL (13.5-17.5); LYMPHOCYTES # (AUTO) 1.3 K/uL (1.0-4.8); LYMPHOCYTES % (AUTO) 16.6 % (22.0-44.0); MEAN CORPUSCULAR HEMOGLOBIN 31.5 pg (26.0-34.0); MEAN CORPUSCULAR VOLUME 93 fL (80-100); MONOCYTES # (AUTO) 0.8 K/uL (0.1-1.0); MONOCYTES % (AUTO) 9.8 % (2.0-9.0); NEUTROPHILS # (AUTO) 5.5 K/uL (1.8-7.7); NEUTROPHILS % (AUTO) 70.9 % (40.0-70.0); PLATELET COUNT (AUTO) 141 K/uL (150-450); RED BLOOD CELL COUNT(AUTO) 3.78 MIL/uL (4.50-5.90); RED CELL DISTRIBUTION WIDTH 15.5 % (11.5-14.5)
[2018-11-19 12:38] LABS: CALCIUM, TOTAL 8.9 mg/dL (8.8-10.5); CREATININE 4.08 mg/dL (0.60-1.30); POTASSIUM 5.8 mmol/L (3.5-5.1)
[2018-11-19 12:44] LABS: BILIRUBIN,TOTAL 0.8 mg/dL (0.1-1.0); TOTAL PROTEIN, SERUM 7.9 g/dL (6.4-8.2)
[2018-11-19] MEDS ORDERED: SODIUM CHLORIDE 0.9% 500 ML IV ONE (13:30)
[2018-11-19] MEDS ORDERED: SODIUM POLYSTYRENE SULFONATE 15 GM/60 ML SUSPENSION BOTTLE PO ONE (13:30)
[2018-11-19] MEDS ORDERED: PIPERACILLIN/TAZO 3.375 GM/D5W 50 ML IV ONE (14:00)
[2018-11-19] MEDS ORDERED: HYDROmorphone 2 MG/ML SYRINGE IVP ONE (14:30)
[2018-11-19 16:01] VITALS: BP 84/59
[2018-11-19 16:15] VITALS: BP 94/56
[2018-11-19 17:01] VITALS: BP 121/66
[2018-11-19 17:20] LABS: GLUCOMETER DEV NAME(LOC) 4E.2; GLUCOSE,POINT OF CARE 131 MG/DL (70-110)
[2018-11-19] MEDS ORDERED: INFLUENZA VIRUS VACCINE QVS 2019-20 (3YR+)/PF 60 MCG/0.5 ML SYRINGE IM ONE (17:30)
[2018-11-19] MEDS ORDERED: ONDANSETRON HCL 4 MG/2 ML VIAL IVP PRN (19:15)
[2018-11-19] MEDS ORDERED: 0.9% SODIUM CHLORIDE 10 ML SYRINGE IVP PRN (19:15)
[2018-11-19] MEDS ORDERED: DEXTROSE 50%-WATER 25 GM/50 ML SYRINGE IVP PRN (19:15)
[2018-11-19] MEDS ORDERED: ZOLPIDEM TARTRATE 5 MG TABLET PO PRN (19:15)
[2018-11-19 19:43] VITALS: BP 146/65
[2018-11-19] MEDS: PANTOPRAZOLE SODIUM 40 MG DR TABLET PO SCH (20:21)
[2018-11-19] MEDS: LOSARTAN POTASSIUM 50 MG TABLET PO SCH (20:49)
[2018-11-19] MEDS: AmLODIPine BESYLATE 5 MG TABLET PO SCH (20:49)
[2018-11-19] MEDS: CARVEDILOL 6.25 MG TABLET PO SCH (20:50)
[2018-11-19 21:12] LABS: GLUCOMETER DEV NAME(LOC) 6N.2; GLUCOSE,POINT OF CARE 128 MG/DL (70-110)
[2018-11-19] MEDS: HydrALAZINE HCL 50 MG TABLET PO SCH (21:16)
[2018-11-19] MEDS: SODIUM POLYSTYRENE SULFONATE 15 GM/60 ML SUSPENSION BOTTLE PO SCH (21:16)
[2018-11-19 23:00] VITALS: BP 143/68
[2018-11-20 03:05] VITALS: BP 136/73
[2018-11-20 05:38] LABS: BASOPHILS % (AUTO) 0.4 % (0.0-2.0); EOSINOPHILS % (AUTO) 1.2 % (1.0-6.0); HEMATOCRIT 32.9 % (41-53); HEMOGLOBIN 11.2 g/dL (13.5-17.5); LYMPHOCYTES # (AUTO) 1.1 K/uL (1.0-4.8); MEAN CORPUSCULAR HEMOGLOBIN 31.7 pg (26.0-34.0); MEAN CORPUSCULAR HGB CONC 34.1 G/dL (31.0-37.0); MEAN CORPUSCULAR VOLUME 93 fL (80-100); MONOCYTES # (AUTO) 0.6 K/uL (0.1-1.0); MONOCYTES % (AUTO) 8.6 % (2.0-9.0); NEUTROPHILS # (AUTO) 5.6 K/uL (1.8-7.7); NEUTROPHILS % (AUTO) 74.8 % (40.0-70.0); PLATELET COUNT (AUTO) 126 K/uL (150-450); RED BLOOD CELL COUNT(AUTO) 3.54 MIL/uL (4.50-5.90); RED CELL DISTRIBUTION WIDTH 15.2 % (11.5-14.5)
[2018-11-20 05:56] LABS: GLUCOMETER DEV NAME(LOC) 6N.2; GLUCOSE,POINT OF CARE 163 MG/DL (70-110)
[2018-11-20] MEDS: INSULIN LISPRO 100 UNITS/ML SQ PRN ×2 (06:02→11:31)
[2018-11-20 06:04] LABS: CALCIUM, TOTAL 8.8 mg/dL (8.8-10.5); CREATININE 4.16 mg/dL (0.60-1.30); MAGNESIUM 2.3 mg/dL (1.80-2.40); POTASSIUM 4.5 mmol/L (3.5-5.1)
[2018-11-20 07:36] VITALS: BP 128/70
[2018-11-20] MEDS: BUMETANIDE 1 MG TABLET PO SCH (08:09)
[2018-11-20] MEDS: HydrALAZINE HCL 50 MG TABLET PO SCH ×2 (08:09→16:55)
[2018-11-20] MEDS: SODIUM POLYSTYRENE SULFONATE 15 GM/60 ML SUSPENSION BOTTLE PO SCH (08:09)
[2018-11-20] MEDS: CARVEDILOL 6.25 MG TABLET PO SCH (08:09)
[2018-11-20] MEDS: PREGABALIN 75 MG CAPSULE PO SCH (08:10)
[2018-11-20] MEDS: PANTOPRAZOLE SODIUM 40 MG DR TABLET PO SCH (08:10)
[2018-11-20] MEDS: TAMSULOSIN HCL 0.4 MG CAPSULE PO SCH (08:10)
[2018-11-20] MEDS: AmLODIPine BESYLATE 5 MG TABLET PO SCH (08:10)
[2018-11-20] MEDS: LOSARTAN POTASSIUM 50 MG TABLET PO SCH (08:10)
[2018-11-20] MEDS: DOCUSATE SODIUM 100 MG CAPSULE PO SCH (08:13)
[2018-11-20] MEDS ORDERED: LORazepam 1 MG TABLET PO PRN (09:15)
[2018-11-20] MEDS ORDERED: OxyCODONE HCL/ACETAMINOPHEN 5-325 MG TABLET PO PRN (09:15)
[2018-11-20 11:43] VITALS: BP 116/66
[2018-11-20] MEDS ORDERED: LACTULOSE 20 GM/30 ML SOLUTION UDCUP PO ONE (13:15)
[2018-11-20 14:26] LABS: GLUCOMETER DEV NAME(LOC) 6N.2; GLUCOSE,POINT OF CARE 169 MG/DL (70-110)
[2018-11-20 15:00] VITALS: BP 108/57
[2018-11-20] MEDS ORDERED: LOSA50TA64 PO (16:38)
[2018-11-20] MEDS ORDERED: DOCU100C34 PO (16:38)
[2018-11-20 20:10] VITALS: BP 117/64
[2018-11-20 22:41] LABS: GLUCOMETER DEV NAME(LOC) 6N.2; GLUCOSE,POINT OF CARE 152 MG/DL (70-110)
[2018-11-21] VITALS (8 sets, daily range): BP systolic 95–145; BP diastolic 50–73
[2018-11-21] MEDS: CARVEDILOL 6.25 MG TABLET PO SCH ×3 (00:18→21:00)
[2018-11-21] MEDS: HydrALAZINE HCL 50 MG TABLET PO SCH ×4 (00:18→21:00)
[2018-11-21] MEDS: AmLODIPine BESYLATE 5 MG TABLET PO SCH ×3 (00:18→21:00)
[2018-11-21] MEDS: OxyCODONE HCL/ACETAMINOPHEN 5-325 MG TABLET PO PRN ×2 (03:52→19:57)
[2018-11-21] MEDS: INSULIN LISPRO 100 UNITS/ML SQ PRN ×3 (05:48→20:58)
[2018-11-21 06:49] LABS: HEMOGLOBIN A1C 5.5 % (4.5-6.2)
[2018-11-21 07:25] LABS: CALCIUM, TOTAL 8.3 mg/dL (8.8-10.5); CHOL/HDL RATIO 3.3 (4.2-7.3); CREATININE 3.9 mg/dL (0.60-1.30); FREE T4 (FREE THYROXINE) 1.31 ng/dL (0.76-1.46); POTASSIUM 3.6 mmol/L (3.5-5.1); THYROID STIMULATING HORMONE 0.56 uIU/mL (0.36-3.74)
[2018-11-21 07:45] LABS: GLUCOMETER DEV NAME(LOC) 6N.2; GLUCOSE,POINT OF CARE 141 MG/DL (70-110)
[2018-11-21] MEDS: BUMETANIDE 1 MG TABLET PO SCH (08:28)
[2018-11-21] MEDS: PANTOPRAZOLE SODIUM 40 MG DR TABLET PO SCH (08:28)
[2018-11-21] MEDS: DOCUSATE SODIUM 100 MG CAPSULE PO SCH (08:28)
[2018-11-21] MEDS: PREGABALIN 75 MG CAPSULE PO SCH (08:29)
[2018-11-21] MEDS: RIFAXIMIN 550 MG TABLET PO SCH ×2 (08:29→19:58)
[2018-11-21] MEDS: LACTULOSE 20 GM/30 ML SOLUTION UDCUP PO SCH ×2 (08:29→19:57)
[2018-11-21] MEDS: TAMSULOSIN HCL 0.4 MG CAPSULE PO SCH (08:29)
[2018-11-21] MEDS ORDERED: LACTULOSE 20 GM/30 ML SOLUTION UDCUP PO SCH (09:00)
[2018-11-21 09:09] LABS: PROTHROMBIN TIME 10.3 SEC (9.4-11.6)
[2018-11-21 12:31] LABS: GLUCOMETER DEV NAME(LOC) 4E.2; GLUCOSE,POINT OF CARE 168 MG/DL (70-110)
[2018-11-21 15:46] LABS: APPEARANCE,URINE CLOUDY (CLEAR); BILIRUBIN,URINE NEGATIVE (NEGATIVE); GLUCOSE, URINE (UA) NEGATIVE (NEGATIVE); KETONES,URINE NEGATIVE (NEGATIVE); LEUKOCYTE ESTERASE ,URINE NEGATIVE (NEGATIVE); NITRATE,URINE NEGATIVE (NEGATIVE); OCCULT BLOOD,URINE NEGATIVE (NEGATIVE); PROTEIN,URINE SEE CONFIRM (NEGATIVE); UROBILINOGEN,URINE 0.2 mg/dL (<=1.0)
[2018-11-21 15:49] LABS: CREATININE,URINE RANDOM 163.7 mg/dL (30.0-125.0); PROTEIN,URINE RANDOM 127 mg/dL (0-11.9); SODIUM,URINE RANDOM 43 mmol/l (20-110); UREA NITROGEN,URINE RANDOM 613 mg/dL (350-1000)
[2018-11-21 16:04] LABS: SULFOSALICYLIC ACID,URINE 3+ (Negative)
[2018-11-21 16:06] LABS: BACTERIA,URINE Few /HPF (None Seen); RBC,URINE 0-2 /HPF (0-2); SQUAMOUS EPITHELIAL CELL,UR Few /LPF (None Seen)
[2018-11-21] MEDS: FINASTERIDE 5 MG TABLET PO SCH (17:35)
[2018-11-21 17:36] LABS: GLUCOMETER DEV NAME(LOC) 4E.2; GLUCOSE,POINT OF CARE 135 MG/DL (70-110)
[2018-11-22] VITALS (7 sets, daily range): BP systolic 102–145; BP diastolic 52–69
[2018-11-22] MEDS: OxyCODONE HCL/ACETAMINOPHEN 5-325 MG TABLET PO PRN ×2 (03:00→21:20)
[2018-11-22 05:27] LABS: GLUCOMETER DEV NAME(LOC) 4E.2; GLUCOSE,POINT OF CARE 228 MG/DL (70-110)
[2018-11-22] MEDS ORDERED: OxyCODONE HCL/ACETAMINOPHEN 5-325 MG TABLET PO ONE (06:45)
[2018-11-22 07:15] LABS: CALCIUM, TOTAL 8.4 mg/dL (8.8-10.5); CREATININE 3.88 mg/dL (0.60-1.30); POTASSIUM 4.1 mmol/L (3.5-5.1)
[2018-11-22] MEDS: TAMSULOSIN HCL 0.4 MG CAPSULE PO SCH (09:10)
[2018-11-22] MEDS: PREGABALIN 75 MG CAPSULE PO SCH (09:11)
[2018-11-22] MEDS: FINASTERIDE 5 MG TABLET PO SCH (09:12)
[2018-11-22] MEDS: RIFAXIMIN 550 MG TABLET PO SCH (09:13)
[2018-11-22] MEDS: PANTOPRAZOLE SODIUM 40 MG DR TABLET PO SCH (09:13)
[2018-11-22] MEDS: DOCUSATE SODIUM 100 MG CAPSULE PO SCH (09:13)
[2018-11-22] MEDS: BUMETANIDE 1 MG TABLET PO SCH (09:56)
[2018-11-22] MEDS: LACTULOSE 20 GM/30 ML SOLUTION UDCUP PO SCH ×2 (09:57→20:50)
[2018-11-22] MEDS: INSULIN LISPRO 100 UNITS/ML SQ PRN ×2 (12:18→21:15)
[2018-11-22] MEDS: AmLODIPine BESYLATE 5 MG TABLET PO SCH ×2 (14:00→20:51)
[2018-11-22 20:36] LABS: GLUCOMETER DEV NAME(LOC) 6N.2; GLUCOSE,POINT OF CARE 138 MG/DL (70-110)
[2018-11-22 20:36] LABS: GLUCOMETER DEV NAME(LOC) 6N.2; GLUCOSE,POINT OF CARE 128 MG/DL (70-110)
[2018-11-22 20:36] LABS: GLUCOMETER DEV NAME(LOC) 6N.2; GLUCOSE,POINT OF CARE 191 MG/DL (70-110)
[2018-11-22] MEDS: HydrALAZINE HCL 25 MG TABLET PO SCH (20:50)
[2018-11-22] MEDS ORDERED: HydrALAZINE HCL 50 MG TABLET PO SCH (21:00)
[2018-11-22] MEDS: CARVEDILOL 3.125 MG TABLET PO SCH (23:20)
[2018-11-23 00:03] VITALS: BP 132/62
[2018-11-23 04:00] VITALS: BP 140/69
[2018-11-23 06:03] LABS: CALCIUM, TOTAL 8.4 mg/dL (8.8-10.5); CREATININE 3.64 mg/dL (0.60-1.30); POTASSIUM 4.3 mmol/L (3.5-5.1)
[2018-11-23] MEDS: INSULIN LISPRO 100 UNITS/ML SQ PRN ×2 (06:08→11:48)
[2018-11-23 07:26] VITALS: BP 147/64
[2018-11-23] MEDS: PANTOPRAZOLE SODIUM 40 MG DR TABLET PO SCH (08:39)
[2018-11-23] MEDS: PREGABALIN 75 MG CAPSULE PO SCH (08:40)
[2018-11-23] MEDS: AmLODIPine BESYLATE 5 MG TABLET PO SCH (08:40)
[2018-11-23] MEDS: FINASTERIDE 5 MG TABLET PO SCH (08:40)
[2018-11-23] MEDS: CARVEDILOL 3.125 MG TABLET PO SCH (08:41)
[2018-11-23] MEDS: LACTULOSE 20 GM/30 ML SOLUTION UDCUP PO SCH (08:41)
[2018-11-23] MEDS: DOCUSATE SODIUM 100 MG CAPSULE PO SCH (08:41)
[2018-11-23] MEDS: TAMSULOSIN HCL 0.4 MG CAPSULE PO SCH (08:41)
[2018-11-23] MEDS: HydrALAZINE HCL 25 MG TABLET PO SCH (08:43)
[2018-11-23] MEDS: OxyCODONE HCL/ACETAMINOPHEN 5-325 MG TABLET PO PRN (09:02)
[2018-11-23 11:23] VITALS: BP_SYST 155; BP_SYST 171; BP_DIAS 77; BP_DIAS 85
[2018-11-23 11:35] LABS: GLUCOMETER DEV NAME(LOC) 4E.2; GLUCOSE,POINT OF CARE 187 MG/DL (70-110)
[2018-11-23 11:36] LABS: GLUCOMETER DEV NAME(LOC) 4E.2; GLUCOSE,POINT OF CARE 152 MG/DL (70-110)
[2018-11-23 14:12] VITALS: BP 128/69
[2018-11-23 15:52] VITALS: BP 125/67
[2018-11-23 18:11] LABS: GLUCOMETER DEV NAME(LOC) 4E.2; GLUCOSE,POINT OF CARE 177 MG/DL (70-110)
[2018-11-24] MEDS ORDERED: PREGABALIN 50 MG CAPSULE PO SCH (09:00)
== END 2018-11-23 15:48 | DRG 683 ==
LOC: EMS 09:17 → 4E 15:34
PROVIDERS: ADMIT Internal Medicine; ATTEND Internal Medicine
DX: N17.9 Acute kidney failure, unspecified (principal); N39.0 Urinary tract infection, site not specified; I13.0 Hypertensive heart and chronic kidney disease with heart failure and stage 1 through stage 4 chronic kidney disease, or unspecified chronic kidney disease; I50.30 Unspecified diastolic (congestive) heart failure; N13.8 Other obstructive and reflux uropathy; N18.9 Chronic kidney disease, unspecified; E11.21 Type 2 diabetes mellitus with diabetic nephropathy; E11.22 Type 2 diabetes mellitus with diabetic chronic kidney disease; I25.119 Atherosclerotic heart disease of native coronary artery with unspecified angina pectoris; K21.9 Gastro-esophageal reflux disease without esophagitis; E78.00 Pure hypercholesterolemia, unspecified; D63.1 Anemia in chronic kidney disease; N40.0 Benign prostatic hyperplasia without lower urinary tract symptoms; B19.20 Unspecified viral hepatitis C without hepatic coma; D69.6 Thrombocytopenia, unspecified; E11.319 Type 2 diabetes mellitus with unspecified diabetic retinopathy without macular edema; E78.5 Hyperlipidemia, unspecified; E87.5 Hyperkalemia; F03.90 Unspecified dementia, unspecified severity, without behavioral disturbance, psychotic disturbance, mood disturbance, and anxiety; G89.29 Other chronic pain; K56.41 Fecal impaction; K74.60 Unspecified cirrhosis of liver; M06.9 Rheumatoid arthritis, unspecified; N40.1 Benign prostatic hyperplasia with lower urinary tract symptoms; Z87.440 Personal history of urinary (tract) infections; Z79.899 Other long term (current) drug therapy; Z28.21 Immunization not carried out because of patient refusal
CPT/HCPCS: 51702; 74176; 76705; 76770; 82105; 82570; 82595; 83036; 83735; 84100; 84156; 84300; 84439; 84443; 84540; 86430; 86431; 93005; G0378; J1170; J2270; J2405; J2543; J7040

== ENCOUNTER 2019-01-22 14:05 | Inpatient (IN) | payer MEDICARE, MEDICAID ==
[~2019-01-22] VITALS: Ht 170.2 cm; Wt 74.6 kg
[~2019-01-22 14:05] MED LIST changes: +BUME1TAB34 PO; +BUPR75FI3 PO; +DOCU100C34 PO; -DSS100 PO; -FURO40 PO; -LOSA25TA41 PO; +LOSA50TA64 PO; +OXYC-601 PO; -PERCT10 PO; +TAMS-1 PO
[2019-01-22] MEDS ORDERED: LACT30L PO (14:36)
[2019-01-22] MEDS ORDERED: FINA5TAB41 PO (14:36)
[2019-01-22] MEDS ORDERED: LACTULOSE 20 GM/30 ML SOLUTION UDCUP PO PRN (15:15)
[2019-01-22] MEDS ORDERED: ONDANSETRON HCL 4 MG/2 ML VIAL IVP PRN (16:00)
[2019-01-22] MEDS ORDERED: IPRATROPIUM BROMIDE 0.5 MG/2.5 ML NEB SOLUTION NEB PRN (16:00)
[2019-01-22] MEDS ORDERED: MAGNESIUM HYDROXIDE SUSPENSION 30 ML UDCUP PO PRN (16:00)
[2019-01-22] MEDS ORDERED: ZOLPIDEM TARTRATE 5 MG TABLET PO PRN (16:00)
[2019-01-22] MEDS ORDERED: ALBUTEROL SULFATE 2.5 MG/0.5 ML NEB SOLUTION NEB PRN (16:00)
[2019-01-22] MEDS ORDERED: BISACODYL 10 MG RECTAL RECTAL SUPPOSITORY PR PRN (16:00)
[2019-01-22 16:23] LABS: GLUCOSE,POINT OF CARE 153 MG/DL (70-110)
[2019-01-22 16:35] LABS: BASOPHILS % (AUTO) 0.4 % (0.0-2.0); EOSINOPHILS % (AUTO) 0.4 % (1.0-6.0); HEMATOCRIT 35.5 % (41-53); HEMOGLOBIN 11.6 g/dL (13.5-17.5); LYMPHOCYTES # (AUTO) 0.4 K/uL (1.0-4.8); LYMPHOCYTES % (AUTO) 6.9 % (22.0-44.0); MEAN CORPUSCULAR HEMOGLOBIN 32.6 pg (26.0-34.0); MEAN CORPUSCULAR HGB CONC 32.7 G/dL (31.0-37.0); MEAN CORPUSCULAR VOLUME 100 fL (80-100); MONOCYTES # (AUTO) 0.1 K/uL (0.1-1.0); MONOCYTES % (AUTO) 2.3 % (2.0-9.0); PLATELET COUNT (AUTO) 165 K/uL (150-450); RED BLOOD CELL COUNT(AUTO) 3.56 MIL/uL (4.50-5.90); RED CELL DISTRIBUTION WIDTH 17.5 % (11.5-14.5)
[2019-01-22 16:49] LABS: PROTHROMBIN TIME 10.5 SEC (9.4-11.6)
[2019-01-22 16:50] LABS: CALCIUM, TOTAL 8.6 mg/dL (8.8-10.5); CREATININE 2.25 mg/dL (0.60-1.30); POTASSIUM 5.7 mmol/L (3.5-5.1)
[2019-01-22] MEDS: HydrALAZINE HCL 50 MG TABLET PO SCH ×2 (17:03→21:00)
[2019-01-22 17:15] LABS: ALBUMIN 3.1 g/dL (3.4-5.0); BILIRUBIN,TOTAL 0.6 mg/dL (0.1-1.0); TOTAL PROTEIN, SERUM 7.4 g/dL (6.4-8.2)
[2019-01-22] MEDS ORDERED: LORazepam 2 MG/ML VIAL IM ONE (17:30)
[2019-01-22] MEDS ORDERED: IPRATROPIUM BROMIDE 0.5 MG/2.5 ML NEB SOLUTION NEB ONE (17:30)
[2019-01-22] MEDS ORDERED: SODIUM POLYSTYRENE SULFONATE 15 GM/60 ML SUSPENSION BOTTLE PO ONE (17:30)
[2019-01-22] MEDS ORDERED: ALBUTEROL SULFATE 5 MG/ML 20 ML NEB SOLN [BULK] NEB ONE (17:35)
[2019-01-22] MEDS ORDERED: SODIUM ZIRCONIUM CYCLOSILICATE 5 GM POWDER PACKET PO ONE (18:00)
[2019-01-22] MEDS ORDERED: CITRIC ACID/SODIUM CITRATE 30 ML SOLUTION UDCUP PO ONE (18:00)
[2019-01-22] MEDS ORDERED: 0.9% SODIUM CHLORIDE 5 ML NEB SOLUTION NEB ONE (18:26)
[2019-01-22 19:34] LABS: GLUCOSE,POINT OF CARE 229 MG/DL (70-110)
[2019-01-22] MEDS: HEPARIN SODIUM,PORCINE 5,000 UNITS/ML VIAL SQ SCH (21:00)
[2019-01-22] MEDS: AmLODIPine BESYLATE 5 MG TABLET PO SCH (21:34)
[2019-01-22] MEDS: LOSARTAN POTASSIUM 50 MG TABLET PO SCH (21:35)
[2019-01-22] MEDS: CARVEDILOL 6.25 MG TABLET PO SCH (21:35)
[2019-01-22 23:27] VITALS: BP 121/94
[2019-01-22] MEDS: HALOPERIDOL LACTATE 5 MG/ML VIAL IM PRN (23:59)
[2019-01-23] MEDS: LORazepam 1 MG TABLET PO PRN (04:45)
[2019-01-23 04:54] VITALS: BP 133/104
[2019-01-23] MEDS ORDERED: INFLUENZA VIRUS VACCINE QVS 2019-20 (3YR+)/PF 60 MCG/0.5 ML SYRINGE IM ONE (05:30)
[2019-01-23 06:35] LABS: BASOPHILS % (AUTO) 0.1 % (0.0-2.0); EOSINOPHILS % (AUTO) 0 % (1.0-6.0); HEMATOCRIT 29.6 % (41-53); HEMOGLOBIN 9.9 g/dL (13.5-17.5); LYMPHOCYTES # (AUTO) 0.4 K/uL (1.0-4.8); LYMPHOCYTES % (AUTO) 7.7 % (22.0-44.0); MEAN CORPUSCULAR HEMOGLOBIN 32.9 pg (26.0-34.0); MEAN CORPUSCULAR HGB CONC 33.3 G/dL (31.0-37.0); MEAN CORPUSCULAR VOLUME 99 fL (80-100); MONOCYTES # (AUTO) 0.5 K/uL (0.1-1.0); MONOCYTES % (AUTO) 9.7 % (2.0-9.0); NEUTROPHILS # (AUTO) 4.5 K/uL (1.8-7.7); NEUTROPHILS % (AUTO) 82.5 % (40.0-70.0); PLATELET COUNT (AUTO) 161 K/uL (150-450); RED BLOOD CELL COUNT(AUTO) 2.99 MIL/uL (4.50-5.90); RED CELL DISTRIBUTION WIDTH 16.9 % (11.5-14.5)
[2019-01-23 06:45] LABS: HEMOGLOBIN A1C 4.6 % (4.5-6.2)
[2019-01-23 07:05] LABS: TROPONIN I 0.05 ng/mL (0.00-0.05)
[2019-01-23 07:16] LABS: CALCIUM, TOTAL 8.3 mg/dL (8.8-10.5); CREATININE 2.57 mg/dL (0.60-1.30); FREE T4 (FREE THYROXINE) 1.21 ng/dL (0.76-1.46); MAGNESIUM 1.7 mg/dL (1.80-2.40)
[2019-01-23 07:34] VITALS: BP 158/77
[2019-01-23] MEDS: HEPARIN SODIUM,PORCINE 5,000 UNITS/ML VIAL SQ SCH ×2 (09:00→21:56)
[2019-01-23] MEDS: HydrALAZINE HCL 50 MG TABLET PO SCH ×3 (09:06→21:57)
[2019-01-23] MEDS: PANTOPRAZOLE SODIUM 40 MG DR TABLET PO SCH (09:07)
[2019-01-23] MEDS: SODIUM ZIRCONIUM CYCLOSILICATE 5 GM POWDER PACKET PO SCH (09:07)
[2019-01-23] MEDS: CARVEDILOL 6.25 MG TABLET PO SCH ×2 (09:07→21:55)
[2019-01-23] MEDS: FINASTERIDE 5 MG TABLET PO SCH (09:07)
[2019-01-23] MEDS: PREGABALIN 75 MG CAPSULE PO SCH (09:07)
[2019-01-23] MEDS: AmLODIPine BESYLATE 5 MG TABLET PO SCH ×2 (09:07→21:55)
[2019-01-23] MEDS: TAMSULOSIN HCL 0.4 MG CAPSULE PO SCH (09:07)
[2019-01-23] MEDS: DOCUSATE SODIUM 100 MG CAPSULE PO SCH (09:07)
[2019-01-23] MEDS: LOSARTAN POTASSIUM 50 MG TABLET PO SCH ×2 (09:10→21:55)
[2019-01-23] MEDS: HALOPERIDOL LACTATE 5 MG/ML VIAL IM PRN (15:27)
[2019-01-23 15:56] VITALS: BP 148/65
[2019-01-23 19:36] VITALS: BP 133/98
[2019-01-23] MEDS ORDERED: MAGNESIUM SULFATE 2 GM/WATER 50 ML IV PRN (21:15)
[2019-01-23] MEDS ORDERED: ACETAMINOPHEN 325 MG TABLET PO PRN (21:15)
[2019-01-23] MEDS ORDERED: MAGNESIUM SULFATE 4 GM/WATER 100 ML IV PRN (21:15)
[2019-01-23] MEDS: DONEPEZIL HCL 5 MG TABLET PO SCH (21:57)
[2019-01-23] MEDS: MAGNESIUM OXIDE 400 MG TABLET PO PRN (22:00)
[2019-01-23 22:08] LABS: ALBUMIN 2.9 g/dL (3.4-5.0)
[2019-01-24 00:35] VITALS: BP 138/89
[2019-01-24 05:12] VITALS: BP 157/70
[2019-01-24] MEDS: MAGNESIUM OXIDE 400 MG TABLET PO PRN (06:37)
[2019-01-24 06:49] LABS: BASOPHILS % (AUTO) 0.3 % (0.0-2.0); EOSINOPHILS % (AUTO) 1.4 % (1.0-6.0); HEMATOCRIT 27.2 % (41-53); HEMOGLOBIN 9.1 g/dL (13.5-17.5); LYMPHOCYTES # (AUTO) 1.1 K/uL (1.0-4.8); LYMPHOCYTES % (AUTO) 22.2 % (22.0-44.0); MEAN CORPUSCULAR HGB CONC 33.6 G/dL (31.0-37.0); MEAN CORPUSCULAR VOLUME 98 fL (80-100); MONOCYTES # (AUTO) 0.5 K/uL (0.1-1.0); MONOCYTES % (AUTO) 10.8 % (2.0-9.0); NEUTROPHILS # (AUTO) 3.2 K/uL (1.8-7.7); NEUTROPHILS % (AUTO) 65.3 % (40.0-70.0); PLATELET COUNT (AUTO) 160 K/uL (150-450); RED BLOOD CELL COUNT(AUTO) 2.77 MIL/uL (4.50-5.90)
[2019-01-24 07:47] VITALS: BP 160/73
[2019-01-24 07:51] LABS: ALBUMIN 2.5 g/dL (3.4-5.0); CREATININE 2.55 mg/dL (0.60-1.30); MAGNESIUM 1.8 mg/dL (1.80-2.40); POTASSIUM 4.5 mmol/L (3.5-5.1); THYROID STIMULATING HORMONE 1.75 uIU/mL (0.36-3.74)
[2019-01-24] MEDS: LOSARTAN POTASSIUM 50 MG TABLET PO SCH ×2 (09:00→20:35)
[2019-01-24] MEDS: HydrALAZINE HCL 50 MG TABLET PO SCH ×3 (09:00→20:35)
[2019-01-24] MEDS: TAMSULOSIN HCL 0.4 MG CAPSULE PO SCH (09:00)
[2019-01-24] MEDS: HEPARIN SODIUM,PORCINE 5,000 UNITS/ML VIAL SQ SCH ×2 (09:01→20:39)
[2019-01-24] MEDS: DOCUSATE SODIUM 100 MG CAPSULE PO SCH (09:01)
[2019-01-24] MEDS: FINASTERIDE 5 MG TABLET PO SCH (09:01)
[2019-01-24] MEDS: PANTOPRAZOLE SODIUM 40 MG DR TABLET PO SCH (09:01)
[2019-01-24] MEDS: CARVEDILOL 6.25 MG TABLET PO SCH ×2 (09:01→20:35)
[2019-01-24] MEDS: IBUPROFEN 600 MG TABLET PO PRN ×2 (09:01→19:06)
[2019-01-24] MEDS: AmLODIPine BESYLATE 5 MG TABLET PO SCH ×2 (09:03→20:35)
[2019-01-24] MEDS: PREGABALIN 75 MG CAPSULE PO SCH (09:03)
[2019-01-24] MEDS: SODIUM ZIRCONIUM CYCLOSILICATE 5 GM POWDER PACKET PO SCH (09:05)
[2019-01-24] MEDS ORDERED: EPOETIN ALFA 10,000 UNITS/ML VIAL SQ ONE (09:30)
[2019-01-24 11:20] VITALS: BP 148/71
[2019-01-24 15:48] VITALS: BP 153/70
[2019-01-24] MEDS: LORazepam 1 MG TABLET PO PRN (19:32)
[2019-01-24 19:44] VITALS: BP 148/74
[2019-01-24] MEDS: DONEPEZIL HCL 5 MG TABLET PO SCH (20:35)
[2019-01-25 04:25] VITALS: BP 151/70
[2019-01-25 06:34] LABS: BASOPHILS % (AUTO) 0.7 % (0.0-2.0); EOSINOPHILS % (AUTO) 2.5 % (1.0-6.0); HEMATOCRIT 26.5 % (41-53); HEMOGLOBIN 8.9 g/dL (13.5-17.5); LYMPHOCYTES # (AUTO) 0.9 K/uL (1.0-4.8); LYMPHOCYTES % (AUTO) 24.5 % (22.0-44.0); MEAN CORPUSCULAR HEMOGLOBIN 33.2 pg (26.0-34.0); MEAN CORPUSCULAR HGB CONC 33.6 G/dL (31.0-37.0); MEAN CORPUSCULAR VOLUME 99 fL (80-100); MONOCYTES # (AUTO) 0.5 K/uL (0.1-1.0); MONOCYTES % (AUTO) 12.7 % (2.0-9.0); NEUTROPHILS # (AUTO) 2.3 K/uL (1.8-7.7); NEUTROPHILS % (AUTO) 59.6 % (40.0-70.0); PLATELET COUNT (AUTO) 150 K/uL (150-450); RED BLOOD CELL COUNT(AUTO) 2.69 MIL/uL (4.50-5.90); RED CELL DISTRIBUTION WIDTH 17.2 % (11.5-14.5)
[2019-01-25 06:38] LABS: CALCIUM, TOTAL 7.9 mg/dL (8.8-10.5); CREATININE 2.39 mg/dL (0.60-1.30); POTASSIUM 4.5 mmol/L (3.5-5.1)
[2019-01-25 07:45] VITALS: BP 141/61
[2019-01-25] MEDS: HEPARIN SODIUM,PORCINE 5,000 UNITS/ML VIAL SQ SCH (07:52)
[2019-01-25] MEDS: DOCUSATE SODIUM 100 MG CAPSULE PO SCH (07:52)
[2019-01-25] MEDS: TAMSULOSIN HCL 0.4 MG CAPSULE PO SCH (07:52)
[2019-01-25] MEDS: PANTOPRAZOLE SODIUM 40 MG DR TABLET PO SCH (07:53)
[2019-01-25] MEDS: LOSARTAN POTASSIUM 50 MG TABLET PO SCH (07:53)
[2019-01-25] MEDS: CARVEDILOL 6.25 MG TABLET PO SCH (07:53)
[2019-01-25] MEDS: HydrALAZINE HCL 50 MG TABLET PO SCH ×2 (07:54→17:17)
[2019-01-25] MEDS: AmLODIPine BESYLATE 5 MG TABLET PO SCH (07:54)
[2019-01-25] MEDS: PREGABALIN 75 MG CAPSULE PO SCH (07:54)
[2019-01-25] MEDS: FINASTERIDE 5 MG TABLET PO SCH (07:54)
[2019-01-25] MEDS: SODIUM ZIRCONIUM CYCLOSILICATE 5 GM POWDER PACKET PO SCH (10:42)
[2019-01-25] MEDS ORDERED: PANT40TA25 PO (11:08)
[2019-01-25] MEDS ORDERED: ACET-2247 PO (11:09)
[2019-01-25] MEDS ORDERED: AUD NEB (11:11)
[2019-01-25] MEDS ORDERED: BISA10SU11 PR (11:12)
[2019-01-25] MEDS ORDERED: HALO5TAB2 PO (11:14)
[2019-01-25] MEDS ORDERED: IBUP-2070 PO (11:15)
[2019-01-25] MEDS ORDERED: IPRNEB IH (11:24)
[2019-01-25] MEDS ORDERED: MOM30 PO (11:27)
[2019-01-25] MEDS ORDERED: LORA-1001 PO (11:27)
[2019-01-25] MEDS ORDERED: ONDA-104 PO (11:28)
[2019-01-25 11:30] VITALS: BP 135/58
[2019-01-25] MEDS ORDERED: ZOLP5 PO (11:34)
[2019-01-25] MEDS: LORazepam 1 MG TABLET PO PRN (14:28)
[2019-01-25 15:19] VITALS: BP 144/69
== END 2019-01-25 19:10 | DRG 205 ==
LOC: EMS 14:09 → 5N 19:26 → 5S 19:27
PROVIDERS: ADMIT Internal Medicine Geriatric Medicine; ATTEND Internal Medicine Geriatric Medicine
DX: M94.0 Chondrocostal junction syndrome [Tietze] (principal); N17.0 Acute kidney failure with tubular necrosis; I50.33 Acute on chronic diastolic (congestive) heart failure; E87.2 Acidosis; N18.4 Chronic kidney disease, stage 4 (severe); I12.9 Hypertensive chronic kidney disease with stage 1 through stage 4 chronic kidney disease, or unspecified chronic kidney disease; K74.69 Other cirrhosis of liver; B19.20 Unspecified viral hepatitis C without hepatic coma; E11.22 Type 2 diabetes mellitus with diabetic chronic kidney disease; G89.29 Other chronic pain; F03.90 Unspecified dementia, unspecified severity, without behavioral disturbance, psychotic disturbance, mood disturbance, and anxiety; K59.00 Constipation, unspecified; D63.1 Anemia in chronic kidney disease; E78.5 Hyperlipidemia, unspecified; K21.9 Gastro-esophageal reflux disease without esophagitis; E87.5 Hyperkalemia; E11.319 Type 2 diabetes mellitus with unspecified diabetic retinopathy without macular edema; E78.00 Pure hypercholesterolemia, unspecified; F41.9 Anxiety disorder, unspecified; I25.10 Atherosclerotic heart disease of native coronary artery without angina pectoris; Z86.74 Personal history of sudden cardiac arrest; Z87.891 Personal history of nicotine dependence; Z79.891 Long term (current) use of opiate analgesic; Z90.49 Acquired absence of other specified parts of digestive tract; Z82.49 Family history of ischemic heart disease and other diseases of the circulatory system
CPT/HCPCS: 70450; 82607; 82746; 83036; 83735; 84439; 84443; 87081; 90686; 93005; 93306; J0885; J1630; J1644; J2060